=== PATIENT | male | born 1955 | race Caucasian/White ===

== ENCOUNTER → 2018-11-05 | Outpatient (CLI) | payer MEDICAID ==
[~2018-11-05] MED LIST: METF10002 PO; REGADENOSON 0.4 MG/5 ML SYRINGE ONE
== END | disposition home or self-care (01) ==
LOC: CFH 07:43
PROVIDERS: ATTEND Internal Medicine Cardiovascular Disease
DX: I71.2 Thoracic aortic aneurysm, without rupture (principal); I35.0 Nonrheumatic aortic (valve) stenosis
CPT/HCPCS: 78452; 93017; 93306; A9502; J2785

== ENCOUNTER 2018-11-13 15:51 | Outpatient (CLI) | payer MEDICAID ==
[~2018-11-13 15:51] MED LIST changes: -REGADENOSON 0.4 MG/5 ML SYRINGE ONE
== END 2018-11-13 23:59 | disposition home or self-care (01) ==
LOC: CFH 15:51 → CVU 23:59
PROVIDERS: ATTEND Internal Medicine Cardiovascular Disease
DX: I35.0 Nonrheumatic aortic (valve) stenosis (principal); I71.2 Thoracic aortic aneurysm, without rupture; I51.7 Cardiomegaly; Z72.0 Tobacco use
CPT/HCPCS: 93306

== ENCOUNTER 2018-11-27 08:17 | Outpatient (CLI) | payer MEDICAID ==
[2018-11-27] MEDS ORDERED: CETI10TA24 PO (09:12)
[2018-11-27] MEDS ORDERED: LISI1TAB5 PO (09:12)
[2018-11-27] MEDS ORDERED: METF500T17 PO (09:12)
[2018-11-27] MEDS ORDERED: ATOR40TA PO (09:12)
[2018-11-27] MEDS ORDERED: LEVO75CA2 PO (09:12)
[2018-11-27] MEDS ORDERED: TRAZ50TA66 PO (09:12)
[2018-11-27] MEDS ORDERED: LEVO75TA PO (09:12)
[2018-11-27 09:17] LABS: BASOPHILS # (AUTO) 0.06 x10^3/uL (0-0.1); BASOPHILS % (AUTO) 1 % (0-1); EOSINOPHILS # (AUTO) 0.29 x10^3/uL (0-0.4); EOSINOPHILS % (AUTO) 4 % (1-7); LYMPHOCYTES # (AUTO) 1.48 x10^3/uL (1-3.4); LYMPHOCYTES % (AUTO) 19 % (22-44); MD NO; MEAN CORPUSCULAR HEMOGLOBIN 31.4 pg (27.5-34.5); MEAN CORPUSCULAR HGB CONC 33.2 g/dL (33.2-36.2); MEAN CORPUSCULAR VOLUME 94.6 fL (81-97); MEAN PLATELET VOLUME 8.6 fL (7.4-10.4); MONOCYTES % (AUTO) 8 % (2-9); NEUTROPHILS # (AUTO) 5.49 x10^3/uL (1.8-6.8); NEUTROPHILS % (AUTO) 69 % (42-75); PLATELET COUNT 318 x10^3/uL (130-400); RED BLOOD COUNT 4.77 x10^6/uL (4.38-5.82); RED CELL DISTRIBUTION WIDTH 14.1 % (9.4-14.8)
[2018-11-27 09:21] LABS: ANION GAP 6 mmol/L (5-15); CALCIUM 9.4 mg/dL (8.5-10.1); CHLORIDE 102 mmol/L (98-107); CREATININE 0.94 mg/dL (0.7-1.3)
== END 2018-11-27 23:59 | disposition home or self-care (01) ==
LOC: STAR 08:17
PROVIDERS: ATTEND Internal Medicine Cardiovascular Disease
DX: Z01.818 Encounter for other preprocedural examination (principal); I71.2 Thoracic aortic aneurysm, without rupture; I35.0 Nonrheumatic aortic (valve) stenosis; I10 Essential (primary) hypertension; E78.2 Mixed hyperlipidemia; E11.9 Type 2 diabetes mellitus without complications; E66.9 Obesity, unspecified; E03.9 Hypothyroidism, unspecified
CPT/HCPCS: 36415; 80048; 85025

== ENCOUNTER 2018-12-02 09:33 | Day surgery (SDC) | payer MEDICAID ==
[2018-11-27 09:12] VITALS: BP 131/84
[~2018-12-02] VITALS: Ht 152.4 cm; Wt 80.9 kg
[~2018-12-02 09:33] MED LIST changes: +ATOR40TA PO; +CETI10TA24 PO; +LEVO75CA2 PO; +LEVO75TA PO; +LISI1TAB5 PO; +METF500T17 PO; +TRAZ50TA66 PO
[2018-12-02] MEDS ORDERED: SODIUM CHLORIDE 0.9% 1,000 ML IV SCH (09:38)
[2018-12-02] MEDS ORDERED: LIDOCAINE 1%, 20ML ONE (10:01)
[2018-12-02] MEDS ORDERED: FENTANYL PF 100 MCG/2ML ONE (10:01)
[2018-12-02] MEDS ORDERED: MIDAZOLAM 1 MG/ML, 5ML ONE (10:01)
[2018-12-02] MEDS ORDERED: MV-M1TAB35 PO (10:01)
== END 2018-12-02 14:44 | disposition home or self-care (01) ==
LOC: CACL 09:33
PROVIDERS: ATTEND Internal Medicine Cardiovascular Disease
DX: I71.2 Thoracic aortic aneurysm, without rupture (principal); I25.10 Atherosclerotic heart disease of native coronary artery without angina pectoris; E11.9 Type 2 diabetes mellitus without complications; I10 Essential (primary) hypertension; I35.0 Nonrheumatic aortic (valve) stenosis; E78.2 Mixed hyperlipidemia; E03.9 Hypothyroidism, unspecified; Z79.84 Long term (current) use of oral hypoglycemic drugs
CPT/HCPCS: 93454; 93567; C1894; J2250; J3010; J3490; Q9967

== ENCOUNTER 2018-12-15 11:30 | Inpatient (IN) | payer MEDICAID, MEDICARE ==
[~2018-12-15] VITALS: Ht 152.4 cm; Wt 86.0 kg
[~2018-12-15 11:30] MED LIST changes: +MV-M1TAB35 PO
[2018-12-31 14:09] LABS: BASOPHILS # (AUTO) 0.08 x10^3/uL (0-0.1); BASOPHILS % (AUTO) 1 % (0-1); EOSINOPHILS # (AUTO) 0.26 x10^3/uL (0-0.4); EOSINOPHILS % (AUTO) 3 % (1-7); LYMPHOCYTES # (AUTO) 1.34 x10^3/uL (1-3.4); LYMPHOCYTES % (AUTO) 17 % (22-44); MD NO; MEAN CORPUSCULAR HEMOGLOBIN 32.1 pg (27.5-34.5); MEAN CORPUSCULAR HGB CONC 34.3 g/dL (33.2-36.2); MEAN CORPUSCULAR VOLUME 93.6 fL (81-97); MEAN PLATELET VOLUME 8.3 fL (7.4-10.4); MONOCYTES # (AUTO) 0.68 x10^3/uL (0.2-0.8); MONOCYTES % (AUTO) 9 % (2-9); NEUTROPHILS # (AUTO) 5.53 x10^3/uL (1.8-6.8); NEUTROPHILS % (AUTO) 70 % (42-75); PLATELET COUNT 324 x10^3/uL (130-400); RED BLOOD COUNT 4.52 x10^6/uL (4.38-5.82); RED CELL DISTRIBUTION WIDTH 13.6 % (9.4-14.8)
[2018-12-31 14:14] LABS: INTERNATIONAL NORMALIZED RATIO 1.09 (0.93-1.1); PROTHROMBIN TIME 11.4 Seconds (9.6-11.5)
[2018-12-31 14:15] LABS: MICROSCOPIC NOT IND
[2018-12-31 14:16] LABS: ALANINE AMINOTRANSFERASE 41 U/L (12-78); ALBUMIN 3.9 g/dL (3.4-5.0); ANION GAP 7 mmol/L (5-15); CALCIUM 9.4 mg/dL (8.5-10.1); CHLORIDE 103 mmol/L (98-107)
[2018-12-31 14:18] LABS: ALKALINE PHOSPHATASE 104 U/L (45-117); BILIRUBIN,TOTAL 0.4 mg/dL (0.2-1.0); TOTAL PROTEIN 7.5 g/dL (6.4-8.2)
[2018-12-31] MEDS ORDERED: ASPI-496 PO (14:22)
[2018-12-31 16:06] LABS: HEMOGLOBIN A1C 7.3 % (4.2-6.3)
[2019-01-01] VITALS (20 sets, daily range): BP systolic 87–139; BP diastolic 38–73
[2019-01-01] MEDS ORDERED: ALBUMIN HUMAN 5% 500 ML IV PRN (05:00)
[2019-01-01] MEDS ORDERED: INSULIN LISPRO 100 UNITS/ML, PEN SQ-INSULIN SCH (05:30)
[2019-01-01] MEDS ORDERED: DO NOT GIVE MC SCH (05:30)
[2019-01-01] MEDS ORDERED: CHLORHEXIDINE 15 ML UDC MM SCH (05:30)
[2019-01-01] MEDS ORDERED: MIDAZOLAM 10MG/2 ML ONE (06:51)
[2019-01-01] MEDS ORDERED: FENTANYL PF 250 MCG/5ML ONE ×4 (06:51→06:52)
[2019-01-01] MEDS ORDERED: CALCIUM CHLORIDE 10%, 10ML SYR ONE (06:55)
[2019-01-01] MEDS ORDERED: AMINOCAPROIC ACID 250 MG/ML, 20ML ONE ×2 (06:55)
[2019-01-01] MEDS ORDERED: EPINEPHRINE 2 MG in SODIUM CHLORIDE 0.9% 248 ML IV SCH (07:30)
[2019-01-01] MEDS ORDERED: CEFUROXIME 1.5 GM in SODIUM CHLORIDE 0.9% 50 ML IVPB PRN (07:30)
[2019-01-01] MEDS ORDERED: PHENYLEPHRINE 10 MG in SODIUM CHLORIDE 0.9% 249 ML IV PRN ×2 (07:30→10:16)
[2019-01-01] MEDS ORDERED: POTASSIUM CHLORIDE 80 MEQ, SODIUM BICARBONATE 8.4% 10 MEQ, MAGNESIUM SULFATE 0.5 GM, LI... IV PRN (07:30)
[2019-01-01] MEDS ORDERED: DEXMEDETOMIDINE 200 MCG in SODIUM CHLORIDE 0.9% 48 ML IV SCH (07:30)
[2019-01-01] MEDS ORDERED: REGULAR INSULIN 62.5 UNITS in SODIUM CHLORIDE 0.9% 249.375 ML IV PRN (07:30)
[2019-01-01] MEDS ORDERED: MANNITOL PMX 20% 500 ML IVPB PRN (07:30)
[2019-01-01] MEDS ORDERED: VANCOMYCIN 1,300 MG in SODIUM CHLORIDE 0.9% 250 ML IV PRN (07:30)
[2019-01-01] MEDS ORDERED: ROCURONIUM 10 MG/ML,10ML ONE (07:40)
[2019-01-01] MEDS: SODIUM CHLORIDE FLUSH 10ML SYR IVF SCH ×3 (09:00→20:36)
[2019-01-01] MEDS ORDERED: MUPIROCIN OINT 2%, 22GM TP SCH (09:00)
[2019-01-01] MEDS ORDERED: MAGNESIUM SULFATE PMX 2GM/50ML 50 ML ONE (10:08)
[2019-01-01] MEDS ORDERED: MAGNESIUM SULFATE PMX 4GM/100M 0 ML ONE (10:09)
[2019-01-01] MEDS ORDERED: NITROGLYCERIN/D5W PMX 250 ML IV PRN (10:16)
[2019-01-01] MEDS ORDERED: DOBUTAMINE 250 MG in SODIUM CHLORIDE 0.9% 230 ML IV PRN (10:16)
[2019-01-01] MEDS ORDERED: VASOPRESSIN 50 UNIT in SODIUM CHLORIDE 0.9% 247.5 ML IV PRN (10:16)
[2019-01-01] MEDS ORDERED: PROCHLORPERAZINE 5 MG/ML, 2ML IVPush PRN (10:30)
[2019-01-01] MEDS ORDERED: FENTANYL PF 100 MCG/2ML IVPush PRN (10:30)
[2019-01-01] MEDS ORDERED: ACETAMINOPHEN 650 MG SUPP PR PRN (10:30)
[2019-01-01] MEDS ORDERED: BISACODYL 10 MG SUPP PR PRN (10:30)
[2019-01-01] MEDS ORDERED: GLUCAGON 1 MG IM PRN (10:30)
[2019-01-01] MEDS ORDERED: HYDROcodone/APAP 10/325 MG TABLET PO PRN (10:30)
[2019-01-01] MEDS ORDERED: DEXTROSE 50%, 50ML SYRINGE IVPush PRN (10:30)
[2019-01-01] MEDS ORDERED: BISACODYL 5 MG EC TABLET PO PRN (10:30)
[2019-01-01] MEDS ORDERED: SODIUM CHLORIDE 0.9% 1,000 ML IV PRN (10:30)
[2019-01-01] MEDS ORDERED: INSULIN REGULAR 100 UNITS/ML, 3ML VIAL IVPush PRN (10:30)
[2019-01-01] MEDS ORDERED: DEXTROSE 4 GM TAB.CHEW PO PRN (10:30)
[2019-01-01] MEDS ORDERED: MIDAZOLAM 1 MG/ML, 5ML IVPush PRN (10:30)
[2019-01-01] MEDS: DOCUSATE 100 MG CAPSULE PO SCH ×2 (10:44→20:37)
[2019-01-01] MEDS: INSULIN LISPRO 100 UNITS/ML, PEN SQ-INSULIN SCH ×3 (11:00→20:37)
[2019-01-01] MEDS ORDERED: LIDOCAINE 2% 100MG/5ML SYRINGE ONE (11:02)
[2019-01-01] MEDS ORDERED: SODIUM BICARBONATE 1 MEQ/ML, 50ML VIAL ONE ×2 (11:02→17:56)
[2019-01-01] MEDS ORDERED: HEPARIN 1,000 UNITS/ML, 30ML ONE (11:03)
[2019-01-01] MEDS ORDERED: ALBUMIN HUMAN 25% 50 ML ONE (11:03)
[2019-01-01] MEDS ORDERED: PROPOFOL 10 MG/ML, 20ML ONE (11:53)
[2019-01-01 11:54] LABS: GLUCOSE BY BLOOD GAS ANALYZER 169 mg/dL (70-110); HEMOGLOBIN BY BLOOD GAS ANALYZ 12.5 g/dL (14.0-18.0); POTASSIUM BY BLOOD GAS ANALYZR 3.3 mmol/L (3.6-5.5)
[2019-01-01] MEDS ORDERED: PHENYLEPHRINE 10 MG/ML ONE (12:03)
[2019-01-01 12:07] LABS: INTERNATIONAL NORMALIZED RATIO 1.3 (0.93-1.1); PROTHROMBIN TIME 13.5 Seconds (9.6-11.5)
[2019-01-01] MEDS: MAGNESIUM SULFATE 1 GM in SODIUM CHLORIDE 0.9% 50 ML IVPB SCH (12:17)
[2019-01-01] MEDS: KSCALE TO 4.5 IV SCH ×3 (12:52→22:00)
[2019-01-01] MEDS: DEXMEDETOMIDINE 200 MCG in SODIUM CHLORIDE 0.9% 48 ML IV PRN ×3 (12:53→21:17)
[2019-01-01] MEDS ORDERED: POTASSIUM CHLORIDE PMX 100 ML IV ONE ×2 (13:00→17:30)
[2019-01-01] MEDS: LACTATED RINGERS 1,000 ML IV PRN ×4 (13:06→15:11)
[2019-01-01] MEDS ORDERED: POTASSIUM CHLORIDE 30 MEQ in SODIUM CHLORIDE 0.9% 100 ML IV ONE (13:30)
[2019-01-01] MEDS: SODIUM BICARB 8.4%, 50ML SYRINGE IV PRN ×4 (14:37→18:00)
[2019-01-01] MEDS: morphine SULFATE 10 MG/ML, 1ML IVPush PRN ×2 (16:49→20:57)
[2019-01-01 17:19] LABS: INTERNATIONAL NORMALIZED RATIO 1.26 (0.93-1.1); PROTHROMBIN TIME 13.1 Seconds (9.6-11.5)
[2019-01-01] MEDS ORDERED: NOVOSEVEN RT (FACTOR VIIA) RECOMB 1,000 MCG IVPush STA (17:46)
[2019-01-01] MEDS ORDERED: CALCIUM CHLORIDE 13.6 MEQ in SODIUM CHLORIDE 0.9% 100 ML IV ONE (18:00)
[2019-01-01] MEDS ORDERED: PROTAMINE SULFATE 10 MG/ML, 5ML IVPush ONE (18:30)
[2019-01-01] MEDS ORDERED: SODIUM BICARB 8.4%, 50ML SYRINGE IVPush ONE (18:30)
[2019-01-01] MEDS: EPINEPHRINE 2 MG in SODIUM CHLORIDE 0.9% 248 ML IV PRN (19:11)
[2019-01-01] MEDS: REGULAR INSULIN 62.5 UNITS in SODIUM CHLORIDE 0.9% 249.375 ML IV PRN (19:50)
[2019-01-01] MEDS: CEFUROXIME 1.5 GM in SODIUM CHLORIDE 0.9% 50 ML IVPB SCH (20:00)
[2019-01-01] MEDS: VANCOMYCIN 1,200 MG in SODIUM CHLORIDE 0.9% 250 ML IVPB SCH (20:36)
[2019-01-02] MEDS: DEXMEDETOMIDINE 200 MCG in SODIUM CHLORIDE 0.9% 48 ML IV PRN ×2 (00:44→04:50)
[2019-01-02] MEDS: morphine SULFATE 10 MG/ML, 1ML IVPush PRN ×2 (01:11→04:50)
[2019-01-02] MEDS ORDERED: PHENYLEPHRINE 20 MG in SODIUM CHLORIDE 0.9% 248 ML IV PRN (01:30)
[2019-01-02] MEDS: REGULAR INSULIN 62.5 UNITS in SODIUM CHLORIDE 0.9% 249.375 ML IV PRN (01:52)
[2019-01-02] MEDS: KSCALE TO 4.5 IV SCH (04:00)
[2019-01-02 05:16] LABS: MEAN CORPUSCULAR HEMOGLOBIN 31.6 pg (27.5-34.5); MEAN CORPUSCULAR HGB CONC 34.2 g/dL (33.2-36.2); MEAN CORPUSCULAR VOLUME 92.5 fL (81-97); MEAN PLATELET VOLUME 9.1 fL (7.4-10.4); PLATELET COUNT 143 x10^3/uL (130-400); RED BLOOD COUNT 3.07 x10^6/uL (4.38-5.82); RED CELL DISTRIBUTION WIDTH 15.3 % (9.4-14.8)
[2019-01-02 05:23] LABS: INTERNATIONAL NORMALIZED RATIO 1.09 (0.93-1.1); PROTHROMBIN TIME 11.4 Seconds (9.6-11.5)
[2019-01-02 05:27] LABS: ALBUMIN 2.8 g/dL (3.4-5.0); ANION GAP 6 mmol/L (5-15); CHLORIDE 117 mmol/L (98-107)
[2019-01-02 05:43] LABS: MD YES
[2019-01-02 05:46] LABS: <PLATELET ESTIMATE> ADEQUATE; <PLT MORPHOLOGY> NORMAL PLT MORPH; BAND#(MANUAL) 0.59 x10^3/uL; BANDS%(MANUAL) 5 % (0-7); LYMPH#(MANUAL) 1.05 x10^3/uL (1-3.4); LYMPHS% (MANUAL) 9 % (22-44); MONOS#(MANUAL) 0.94 x10^3/uL (0.3-2.7); MONOS% (MANUAL) 8 % (2-9); POLYCHROMASIA 1+; SEG#(MANUAL) 9.13 x10^3/uL (1.8-6.8); SEGS% (MANUAL) 78 % (42-75)
[2019-01-02] MEDS: CEFUROXIME 1.5 GM in SODIUM CHLORIDE 0.9% 50 ML IVPB SCH (06:46)
[2019-01-02] MEDS: INSULIN LISPRO 100 UNITS/ML, PEN SQ-INSULIN SCH ×4 (07:10→21:12)
[2019-01-02] MEDS: EPINEPHRINE 2 MG in SODIUM CHLORIDE 0.9% 248 ML IV PRN (07:52)
[2019-01-02] MEDS: DOCUSATE 100 MG CAPSULE PO SCH ×2 (07:53→21:12)
[2019-01-02] MEDS: VANCOMYCIN 1,200 MG in SODIUM CHLORIDE 0.9% 250 ML IVPB SCH (07:53)
[2019-01-02] MEDS: ONDANSETRON 2MG/ML, 2ML IVPush PRN (08:40)
[2019-01-02 08:44] LABS: FIO2 50 %
[2019-01-02] MEDS: SODIUM CHLORIDE FLUSH 10ML SYR IVF SCH ×4 (09:00→21:12)
[2019-01-02] MEDS: ASPIRIN 81 MG TABLET EC PO SCH (10:46)
[2019-01-02] MEDS: MAGNESIUM SULFATE 1 GM in SODIUM CHLORIDE 0.9% 50 ML IVPB SCH (10:46)
[2019-01-02] MEDS: MUPIROCIN OINT 2%, 22GM NAS SCH ×2 (10:46→21:12)
[2019-01-02] MEDS: FUROSEMIDE 40 MG/4 ML IV SCH ×2 (10:46→16:51)
[2019-01-02] MEDS: OXYcodone IR 5MG TABLET PO PRN (16:51)
[2019-01-02] MEDS ORDERED: FUROSEMIDE 40 MG/4 ML IV SCH (17:00)
[2019-01-03] MEDS: OXYcodone IR 5MG TABLET PO PRN ×2 (00:48→08:40)
[2019-01-03 05:01] LABS: ANION GAP 2 mmol/L (5-15); CALCIUM 7.4 mg/dL (8.5-10.1); CHLORIDE 109 mmol/L (98-107)
[2019-01-03 05:06] LABS: BASOPHILS # (AUTO) 0.03 x10^3/uL (0-0.1); BASOPHILS % (AUTO) 0 % (0-1); EOSINOPHILS # (AUTO) 0.02 x10^3/uL (0-0.4); EOSINOPHILS % (AUTO) 0 % (1-7); LYMPHOCYTES # (AUTO) 1.01 x10^3/uL (1-3.4); LYMPHOCYTES % (AUTO) 9 % (22-44); MD NO; MEAN CORPUSCULAR HEMOGLOBIN 31.7 pg (27.5-34.5); MEAN CORPUSCULAR HGB CONC 34.5 g/dL (33.2-36.2); MEAN PLATELET VOLUME 9.9 fL (7.4-10.4); MONOCYTES # (AUTO) 1.11 x10^3/uL (0.2-0.8); MONOCYTES % (AUTO) 10 % (2-9); NEUTROPHILS # (AUTO) 9.37 x10^3/uL (1.8-6.8); NEUTROPHILS % (AUTO) 81 % (42-75); PLATELET COUNT 100 x10^3/uL (130-400); RED BLOOD COUNT 2.55 x10^6/uL (4.38-5.82); RED CELL DISTRIBUTION WIDTH 15.6 % (9.4-14.8)
[2019-01-03 05:09] LABS: INTERNATIONAL NORMALIZED RATIO 0.97 (0.93-1.1); PROTHROMBIN TIME 10.2 Seconds (9.6-11.5)
[2019-01-03] MEDS ORDERED: TRAZODONE 50MG TABLET PO PRN (06:00)
[2019-01-03] MEDS: INSULIN LISPRO 100 UNITS/ML, PEN SQ-INSULIN SCH ×4 (06:24→22:00)
[2019-01-03] MEDS ORDERED: MAGNESIUM HYDROXIDE 8%, 30ML UDC PO PRN (07:00)
[2019-01-03] MEDS: ONDANSETRON 2MG/ML, 2ML IVPush PRN (08:03)
[2019-01-03] MEDS: LEVOTHYROXINE 75 MCG TABLET PO SCH (08:39)
[2019-01-03] MEDS: ASPIRIN 81 MG TABLET EC PO SCH (08:39)
[2019-01-03] MEDS: CETIRIZINE 10 MG TABLET PO SCH (08:39)
[2019-01-03] MEDS: CLOPIDOGREL 75 MG TABLET PO SCH (08:40)
[2019-01-03] MEDS: MUPIROCIN OINT 2%, 22GM NAS SCH ×2 (08:40→21:52)
[2019-01-03] MEDS: FUROSEMIDE 40 MG/4 ML IV SCH ×2 (08:40→16:27)
[2019-01-03] MEDS: DOCUSATE 100 MG CAPSULE PO SCH ×2 (08:40→21:52)
[2019-01-03] MEDS: SODIUM CHLORIDE FLUSH 10ML SYR IVF SCH ×5 (08:40→21:51)
[2019-01-03] MEDS: metFORMIN 500 MG TABLET PO SCH ×2 (08:40→21:53)
[2019-01-03 11:15] VITALS: BP 127/72
[2019-01-03] MEDS: HYDROcodone/APAP 5/325 TABLET PO PRN ×2 (12:33→21:53)
[2019-01-03] MEDS: MAGNESIUM SULFATE 1 GM in SODIUM CHLORIDE 0.9% 50 ML IVPB SCH (12:34)
[2019-01-03 18:49] VITALS: BP 119/63
[2019-01-03] MEDS: ATORVASTATIN 40 MG TABLET PO SCH (21:53)
[2019-01-04 01:30] VITALS: BP 115/70
[2019-01-04 05:53] LABS: ANION GAP 5 mmol/L (5-15); CALCIUM 7.3 mg/dL (8.5-10.1); CHLORIDE 99 mmol/L (98-107); CREATININE 1.08 mg/dL (0.7-1.3)
[2019-01-04 06:46] LABS: MEAN CORPUSCULAR HEMOGLOBIN 30.8 pg (27.5-34.5); MEAN CORPUSCULAR VOLUME 93.3 fL (81-97); MEAN PLATELET VOLUME 10.5 fL (7.4-10.4); PLATELET COUNT 165 x10^3/uL (130-400); RED BLOOD COUNT 2.91 x10^6/uL (4.38-5.82); RED CELL DISTRIBUTION WIDTH 14.9 % (9.4-14.8)
[2019-01-04] MEDS: INSULIN LISPRO 100 UNITS/ML, PEN SQ-INSULIN SCH ×4 (07:00→21:18)
[2019-01-04 07:12] LABS: MD YES
[2019-01-04 07:14] LABS: LYMPH#(MANUAL) 2.39 x10^3/uL (1-3.4); LYMPHS% (MANUAL) 13 % (22-44); METAMYELOCYTES# (MANUAL) 0.37 x10^3/uL (0-0); METAMYELOCYTES% (MANUAL) 2 % (0-1); MONOS#(MANUAL) 0.74 x10^3/uL (0.3-2.7); MONOS% (MANUAL) 4 % (2-9); POLYCHROMASIA 1+; REACTIVE LYMPHS # (MANUAL) 0.18 x10^3/uL (0-0); REACTIVE LYMPHS % (MANUAL) 1 % (0-0); SEG#(MANUAL) 14.72 x10^3/uL (1.8-6.8); SEGS% (MANUAL) 80 % (42-75)
[2019-01-04 07:15] LABS: <PLATELET ESTIMATE> ADEQUATE; ANISOCYTOSIS 1+; LARGE PLATELETS 1+
[2019-01-04] MEDS: KETOROLAC 30 MG/1 ML IM SCH ×2 (08:30→21:16)
[2019-01-04] MEDS: ASPIRIN 81 MG TABLET EC PO SCH (08:53)
[2019-01-04] MEDS: LEVOTHYROXINE 75 MCG TABLET PO SCH (08:53)
[2019-01-04] MEDS: DOCUSATE 100 MG CAPSULE PO SCH ×2 (08:53→21:14)
[2019-01-04] MEDS: CETIRIZINE 10 MG TABLET PO SCH (08:53)
[2019-01-04] MEDS: CLOPIDOGREL 75 MG TABLET PO SCH (08:53)
[2019-01-04] MEDS: metFORMIN 500 MG TABLET PO SCH ×2 (08:53→21:14)
[2019-01-04] MEDS ORDERED: CLOPIDOGREL 75 MG TABLET PO SCH (09:00)
[2019-01-04] MEDS: SODIUM CHLORIDE FLUSH 10ML SYR IVF SCH ×6 (10:14→21:16)
[2019-01-04] MEDS: FUROSEMIDE 40 MG/4 ML IV SCH ×2 (10:14→18:13)
[2019-01-04] MEDS: MUPIROCIN OINT 2%, 22GM NAS SCH ×2 (10:14→21:15)
[2019-01-04 11:02] LABS: MICROSCOPIC INDICATED
[2019-01-04 11:12] LABS: CULTURE INDICATED? NO
[2019-01-04 13:24] VITALS: BP 108/70
[2019-01-04] MEDS ORDERED: CEFAZOLIN PMX 1GM/50ML 50 ML IVPB ONE (13:30)
[2019-01-04] MEDS: HYDROcodone/APAP 5/325 TABLET PO PRN (16:38)
[2019-01-04] MEDS: ACETAMINOPHEN 325 MG TABLET PO PRN (18:37)
[2019-01-04 18:40] VITALS: BP 110/71
[2019-01-04] MEDS: OXYcodone IR 5MG TABLET PO PRN (20:13)
[2019-01-04] MEDS: SODIUM CHLORIDE 0.9% 1,000 ML IV SCH (21:06)
[2019-01-04] MEDS: ATORVASTATIN 40 MG TABLET PO SCH (21:14)
[2019-01-05 03:40] VITALS: BP 106/67
[2019-01-05 05:07] LABS: MEAN CORPUSCULAR HEMOGLOBIN 31.3 pg (27.5-34.5); MEAN CORPUSCULAR HGB CONC 33.6 g/dL (33.2-36.2); MEAN CORPUSCULAR VOLUME 93.2 fL (81-97); MEAN PLATELET VOLUME 10.6 fL (7.4-10.4); PLATELET COUNT 173 x10^3/uL (130-400); RED BLOOD COUNT 2.65 x10^6/uL (4.38-5.82); RED CELL DISTRIBUTION WIDTH 14.6 % (9.4-14.8)
[2019-01-05 05:14] LABS: ANION GAP 5 mmol/L (5-15); CALCIUM 7.5 mg/dL (8.5-10.1); CHLORIDE 94 mmol/L (98-107); CREATININE 1.26 mg/dL (0.7-1.3)
[2019-01-05 05:59] LABS: BASOPHILS # (AUTO) 0.02 x10^3/uL (0-0.1); BASOPHILS % (AUTO) 0 % (0-1); EOSINOPHILS # (AUTO) 0.07 x10^3/uL (0-0.4); EOSINOPHILS % (AUTO) 0 % (1-7); LYMPHOCYTES # (AUTO) 1.25 x10^3/uL (1-3.4); LYMPHOCYTES % (AUTO) 8 % (22-44); MD SCAN; MONOCYTES # (AUTO) 1.46 x10^3/uL (0.2-0.8); MONOCYTES % (AUTO) 9 % (2-9); NEUTROPHILS # (AUTO) 13.33 x10^3/uL (1.8-6.8); NEUTROPHILS % (AUTO) 83 % (42-75)
[2019-01-05] MEDS: INSULIN LISPRO 100 UNITS/ML, PEN SQ-INSULIN SCH ×4 (07:00→20:50)
[2019-01-05] MEDS: metFORMIN 500 MG TABLET PO SCH ×2 (08:01→20:51)
[2019-01-05 08:03] VITALS: BP 108/69
[2019-01-05] MEDS: DOCUSATE 100 MG CAPSULE PO SCH (08:54)
[2019-01-05] MEDS: CETIRIZINE 10 MG TABLET PO SCH (08:55)
[2019-01-05] MEDS: ASPIRIN 81 MG TABLET EC PO SCH (08:55)
[2019-01-05] MEDS: CLOPIDOGREL 75 MG TABLET PO SCH (08:55)
[2019-01-05] MEDS: SODIUM CHLORIDE FLUSH 10ML SYR IVF SCH ×7 (08:55→20:55)
[2019-01-05] MEDS: MUPIROCIN OINT 2%, 22GM NAS SCH ×2 (08:55→20:51)
[2019-01-05] MEDS: LEVOTHYROXINE 75 MCG TABLET PO SCH (08:56)
[2019-01-05] MEDS: OXYcodone IR 5MG TABLET PO PRN ×3 (10:14→20:51)
[2019-01-05] MEDS: SODIUM CHLORIDE 0.9% 1,000 ML IV SCH (10:32)
[2019-01-05] MEDS ORDERED: LIDOCAINE 2%, 20ML ONE (11:55)
[2019-01-05] MEDS ORDERED: VANCOMYCIN 500 MG ONE (11:55)
[2019-01-05] MEDS ORDERED: MIDAZOLAM 1 MG/ML, 5ML ONE (11:55)
[2019-01-05] MEDS ORDERED: FENTANYL PF 100 MCG/2ML ONE (11:55)
[2019-01-05] MEDS ORDERED: VANCOMYCIN PMX 1GM/200ML 200 ML ONE (11:56)
[2019-01-05] MEDS ORDERED: HOLD MEDICATION MC PRN (14:00)
[2019-01-05 20:04] VITALS: BP 165/81
[2019-01-05] MEDS: ATORVASTATIN 40 MG TABLET PO SCH (20:51)
[2019-01-05] MEDS: CEFAZOLIN PMX 1GM/50ML 50 ML IVPB SCH (22:08)
[2019-01-06 01:53] VITALS: BP 126/76
[2019-01-06] MEDS: OXYcodone IR 5MG TABLET PO PRN (03:49)
[2019-01-06 05:27] LABS: BASOPHILS # (AUTO) 0.06 x10^3/uL (0-0.1); BASOPHILS % (AUTO) 0 % (0-1); EOSINOPHILS # (AUTO) 0.41 x10^3/uL (0-0.4); EOSINOPHILS % (AUTO) 3 % (1-7); LYMPHOCYTES # (AUTO) 1.18 x10^3/uL (1-3.4); LYMPHOCYTES % (AUTO) 8 % (22-44); MD NO; MEAN CORPUSCULAR HEMOGLOBIN 31.4 pg (27.5-34.5); MEAN CORPUSCULAR HGB CONC 33.7 g/dL (33.2-36.2); MEAN CORPUSCULAR VOLUME 93.2 fL (81-97); MEAN PLATELET VOLUME 9.4 fL (7.4-10.4); MONOCYTES # (AUTO) 1.38 x10^3/uL (0.2-0.8); MONOCYTES % (AUTO) 9 % (2-9); NEUTROPHILS % (AUTO) 79 % (42-75); PLATELET COUNT 254 x10^3/uL (130-400); RED CELL DISTRIBUTION WIDTH 14.8 % (9.4-14.8)
[2019-01-06 05:33] LABS: ANION GAP 5 mmol/L (5-15); CALCIUM 7.7 mg/dL (8.5-10.1); CHLORIDE 97 mmol/L (98-107)
[2019-01-06 05:34] LABS: CREATININE 0.82 mg/dL (0.7-1.3)
[2019-01-06] MEDS: CEFAZOLIN PMX 1GM/50ML 50 ML IVPB SCH (06:24)
[2019-01-06] MEDS: INSULIN LISPRO 100 UNITS/ML, PEN SQ-INSULIN SCH ×4 (07:00→21:00)
[2019-01-06 08:03] VITALS: BP 146/87
[2019-01-06] MEDS: CLOPIDOGREL 75 MG TABLET PO SCH (08:59)
[2019-01-06] MEDS: metFORMIN 500 MG TABLET PO SCH ×2 (08:59→21:23)
[2019-01-06] MEDS: DOCUSATE 100 MG CAPSULE PO SCH (09:00)
[2019-01-06] MEDS: ASPIRIN 81 MG TABLET EC PO SCH (09:00)
[2019-01-06] MEDS: LEVOTHYROXINE 75 MCG TABLET PO SCH (09:00)
[2019-01-06] MEDS: CETIRIZINE 10 MG TABLET PO SCH (09:00)
[2019-01-06] MEDS: MUPIROCIN OINT 2%, 22GM NAS SCH ×2 (09:01→21:23)
[2019-01-06] MEDS: SODIUM CHLORIDE FLUSH 10ML SYR IVF SCH ×8 (09:01→21:24)
[2019-01-06] MEDS: LISINOPRIL 5 MG TABLET PO SCH (12:19)
[2019-01-06] MEDS ORDERED: FUROSEMIDE 40 MG/4 ML IV ONE (12:30)
[2019-01-06 13:10] VITALS: BP 136/81
[2019-01-06] MEDS ORDERED: FUROSEMIDE 20 MG/2 ML IV SCH (17:00)
[2019-01-06 19:42] VITALS: BP 133/79
[2019-01-06] MEDS: ATORVASTATIN 40 MG TABLET PO SCH (21:23)
[2019-01-06 21:29] VITALS: BP 115/71
[2019-01-07 02:00] VITALS: BP 116/77
[2019-01-07 06:08] LABS: ANION GAP 5 mmol/L (5-15); CALCIUM 7.8 mg/dL (8.5-10.1); CHLORIDE 99 mmol/L (98-107); CREATININE 0.69 mg/dL (0.7-1.3)
[2019-01-07] MEDS: INSULIN LISPRO 100 UNITS/ML, PEN SQ-INSULIN SCH ×4 (07:00→21:00)
[2019-01-07 07:41] VITALS: BP 134/84
[2019-01-07] MEDS ORDERED: FUROSEMIDE 20 MG TABLET ONE (08:38)
[2019-01-07] MEDS: SODIUM CHLORIDE FLUSH 10ML SYR IVF SCH ×8 (08:50→21:10)
[2019-01-07] MEDS: CLOPIDOGREL 75 MG TABLET PO SCH (08:51)
[2019-01-07] MEDS: DOCUSATE 100 MG CAPSULE PO SCH (08:51)
[2019-01-07] MEDS: metFORMIN 500 MG TABLET PO SCH ×2 (08:51→21:09)
[2019-01-07] MEDS: LISINOPRIL 5 MG TABLET PO SCH (08:51)
[2019-01-07] MEDS: ASPIRIN 81 MG TABLET EC PO SCH (08:51)
[2019-01-07] MEDS: CETIRIZINE 10 MG TABLET PO SCH (08:51)
[2019-01-07] MEDS: FUROSEMIDE 20 MG TABLET PO SCH ×2 (08:51→16:00)
[2019-01-07] MEDS: HYDROcodone/APAP 5/325 TABLET PO PRN ×2 (08:52→21:37)
[2019-01-07] MEDS: MUPIROCIN OINT 2%, 22GM NAS SCH (08:52)
[2019-01-07] MEDS: LEVOTHYROXINE 75 MCG TABLET PO SCH (08:57)
[2019-01-07 14:45] VITALS: BP 119/71
[2019-01-07] MEDS: ACETAMINOPHEN 325 MG TABLET PO PRN (16:01)
[2019-01-07] MEDS ORDERED: FUROSEMIDE 20 MG TABLET PO SCH (17:00)
[2019-01-07 19:41] VITALS: BP 112/72
[2019-01-07] MEDS: ATORVASTATIN 40 MG TABLET PO SCH (21:09)
[2019-01-08 01:28] VITALS: BP 142/74
[2019-01-08] MEDS: HYDROcodone/APAP 5/325 TABLET PO PRN ×3 (01:47→20:58)
[2019-01-08 06:29] LABS: CHLORIDE 105 mmol/L (98-107)
[2019-01-08 06:37] LABS: ANION GAP 4 mmol/L (5-15); CALCIUM 8.4 mg/dL (8.5-10.1); CREATININE 0.62 mg/dL (0.7-1.3)
[2019-01-08] MEDS: INSULIN LISPRO 100 UNITS/ML, PEN SQ-INSULIN SCH ×4 (07:00→20:40)
[2019-01-08 08:00] VITALS: BP 124/76
[2019-01-08] MEDS: FUROSEMIDE 20 MG TABLET PO SCH ×2 (08:00→17:54)
[2019-01-08] MEDS ORDERED: FUROSEMIDE 40 MG/4 ML IV ONE (08:30)
[2019-01-08] MEDS: CLOPIDOGREL 75 MG TABLET PO SCH (08:57)
[2019-01-08] MEDS: DOCUSATE 100 MG CAPSULE PO SCH (08:57)
[2019-01-08] MEDS: ASPIRIN 81 MG TABLET EC PO SCH (08:57)
[2019-01-08] MEDS: LISINOPRIL 5 MG TABLET PO SCH (08:57)
[2019-01-08] MEDS: POTASSIUM CHLORIDE 20 MEQ TAB.ER.PRT PO SCH (08:57)
[2019-01-08] MEDS: LEVOTHYROXINE 75 MCG TABLET PO SCH (08:58)
[2019-01-08] MEDS: metFORMIN 500 MG TABLET PO SCH ×2 (08:58→20:55)
[2019-01-08] MEDS: CETIRIZINE 10 MG TABLET PO SCH (08:58)
[2019-01-08] MEDS: SODIUM CHLORIDE FLUSH 10ML SYR IVF SCH ×8 (09:00→20:56)
[2019-01-08] MEDS: ACETAMINOPHEN 325 MG TABLET PO PRN ×2 (14:42→22:40)
[2019-01-08 15:00] VITALS: BP 121/75
[2019-01-08 19:31] VITALS: BP 148/77
[2019-01-08] MEDS: ATORVASTATIN 40 MG TABLET PO SCH (20:55)
[2019-01-09 01:23] VITALS: BP 120/70
[2019-01-09 05:58] LABS: CHLORIDE 104 mmol/L (98-107)
[2019-01-09 06:24] LABS: ANION GAP 6 mmol/L (5-15); CALCIUM 8.7 mg/dL (8.5-10.1); CREATININE 0.74 mg/dL (0.7-1.3)
[2019-01-09] MEDS: INSULIN LISPRO 100 UNITS/ML, PEN SQ-INSULIN SCH ×4 (07:00→20:54)
[2019-01-09 07:30] VITALS: BP 131/79
[2019-01-09] MEDS ORDERED: CLOP75TA PO (08:05)
[2019-01-09] MEDS ORDERED: HYDR-3237 PO (08:05)
[2019-01-09] MEDS ORDERED: FURO-92 PO (08:05)
[2019-01-09] MEDS ORDERED: POTA20TA6 PO (08:05)
[2019-01-09] MEDS: SODIUM CHLORIDE FLUSH 10ML SYR IVF SCH ×8 (09:00→20:48)
[2019-01-09] MEDS: metFORMIN 500 MG TABLET PO SCH ×2 (09:55→20:48)
[2019-01-09] MEDS: ASPIRIN 81 MG TABLET EC PO SCH (09:55)
[2019-01-09] MEDS: CLOPIDOGREL 75 MG TABLET PO SCH (09:55)
[2019-01-09] MEDS: CETIRIZINE 10 MG TABLET PO SCH (09:55)
[2019-01-09] MEDS: FUROSEMIDE 20 MG TABLET PO SCH ×2 (09:55→17:38)
[2019-01-09] MEDS: DOCUSATE 100 MG CAPSULE PO SCH (09:56)
[2019-01-09] MEDS: LEVOTHYROXINE 75 MCG TABLET PO SCH (09:56)
[2019-01-09] MEDS: POTASSIUM CHLORIDE 20 MEQ TAB.ER.PRT PO SCH (09:56)
[2019-01-09] MEDS: LISINOPRIL 5 MG TABLET PO SCH (09:56)
[2019-01-09] MEDS ORDERED: LIDOCAINE-MPF 1%, 5ML ONE (10:12)
[2019-01-09 12:58] VITALS: BP 124/73
[2019-01-09 19:41] VITALS: BP 139/76
[2019-01-09] MEDS: ATORVASTATIN 40 MG TABLET PO SCH (20:48)
[2019-01-09] MEDS: ACETAMINOPHEN 325 MG TABLET PO PRN (20:48)
[2019-01-10 01:48] VITALS: BP 120/70
[2019-01-10] MEDS: HYDROcodone/APAP 5/325 TABLET PO PRN (04:44)
[2019-01-10 05:53] LABS: CHLORIDE 104 mmol/L (98-107)
[2019-01-10 06:17] LABS: ANION GAP 7 mmol/L (5-15); CALCIUM 8.9 mg/dL (8.5-10.1); CREATININE 0.74 mg/dL (0.7-1.3)
[2019-01-10 06:31] VITALS: BP 127/78
[2019-01-10] MEDS: INSULIN LISPRO 100 UNITS/ML, PEN SQ-INSULIN SCH (07:00)
[2019-01-10] MEDS: CETIRIZINE 10 MG TABLET PO SCH (08:19)
[2019-01-10] MEDS: ASPIRIN 81 MG TABLET EC PO SCH (08:19)
[2019-01-10] MEDS: CLOPIDOGREL 75 MG TABLET PO SCH (08:19)
[2019-01-10] MEDS: DOCUSATE 100 MG CAPSULE PO SCH (08:19)
[2019-01-10] MEDS: POTASSIUM CHLORIDE 20 MEQ TAB.ER.PRT PO SCH (08:19)
[2019-01-10] MEDS: metFORMIN 500 MG TABLET PO SCH (08:19)
[2019-01-10] MEDS: FUROSEMIDE 20 MG TABLET PO SCH (08:20)
[2019-01-10] MEDS: SODIUM CHLORIDE FLUSH 10ML SYR IVF SCH ×4 (08:20→08:21)
[2019-01-10] MEDS: LISINOPRIL 5 MG TABLET PO SCH (08:20)
[2019-01-10] MEDS: LEVOTHYROXINE 75 MCG TABLET PO SCH (08:20)
== END 2019-01-10 12:41 | disposition home or self-care (01) | DRG 220 ==
LOC: 5SO 01-01 04:29 → CCU 01-01 10:03 → 5SO 01-03 11:05 → DCLOUNGE 01-10 12:02
PROVIDERS: ADMIT Thoracic Surgery (Cardiothoracic Vascular Surgery); ATTEND Thoracic Surgery (Cardiothoracic Vascular Surgery)
PROC: 02RF08Z Replacement of Aortic Valve with Zooplastic Tissue, Open Approach (ICD-10-PCS; 2019-01-01)
PROC: B246ZZ4 Ultrasonography of Right and Left Heart, Transesophageal (ICD-10-PCS; 2019-01-01)
PROC: 30233K1 Transfusion of Nonautologous Frozen Plasma into Peripheral Vein, Percutaneous Approach (ICD-10-PCS; 2019-01-01)
PROC: 30233N1 Transfusion of Nonautologous Red Blood Cells into Peripheral Vein, Percutaneous Approach (ICD-10-PCS; 2019-01-01)
PROC: 30233R1 Transfusion of Nonautologous Platelets into Peripheral Vein, Percutaneous Approach (ICD-10-PCS; 2019-01-01)
PROC: 30233M1 Transfusion of Nonautologous Plasma Cryoprecipitate into Peripheral Vein, Percutaneous Approach (ICD-10-PCS; 2019-01-01)
PROC: 05HY33Z Insertion of Infusion Device into Upper Vein, Percutaneous Approach (ICD-10-PCS; 2019-01-01)
PROC: B543ZZA Ultrasonography of Right Jugular Veins, Guidance (ICD-10-PCS; 2019-01-01)
PROC: 03HY32Z Insertion of Monitoring Device into Upper Artery, Percutaneous Approach (ICD-10-PCS; 2019-01-01)
PROC: 02H63JZ Insertion of Pacemaker Lead into Right Atrium, Percutaneous Approach (ICD-10-PCS; principal; 2019-01-05)
PROC: 02HK3JZ Insertion of Pacemaker Lead into Right Ventricle, Percutaneous Approach (ICD-10-PCS; 2019-01-05)
PROC: 0JH606Z Insertion of Pacemaker, Dual Chamber into Chest Subcutaneous Tissue and Fascia, Open Approach (ICD-10-PCS; 2019-01-05)
PROC: 0W9B3ZZ Drainage of Left Pleural Cavity, Percutaneous Approach (ICD-10-PCS; 2019-01-09)
DX: I35.0 Nonrheumatic aortic (valve) stenosis (principal); E87.2 Acidosis; I44.2 Atrioventricular block, complete; I95.81 Postprocedural hypotension; E86.1 Hypovolemia; E03.9 Hypothyroidism, unspecified; I10 Essential (primary) hypertension; D72.829 Elevated white blood cell count, unspecified; I71.2 Thoracic aortic aneurysm, without rupture; E11.36 Type 2 diabetes mellitus with diabetic cataract; E78.5 Hyperlipidemia, unspecified; Z98.41 Cataract extraction status, right eye; Z98.42 Cataract extraction status, left eye; Z87.891 Personal history of nicotine dependence; Z86.79 Personal history of other diseases of the circulatory system; Q86.0 Fetal alcohol syndrome (dysmorphic)
CPT/HCPCS: 32555; 33208; 36415; 36600; J3490; S0017; 71045; 71046; 80048; 80053; 81001; 81003; 82040; 82330; 82800; 82803; 82810; 82947; 82962; 83036; 83735; 84132; 84295; 85014; 85018; 85025; 85049; 85347; 85610; 85730; 86850; 86900; 86923; 87081; 88304; 88305; 88311; 93005; 93312; 93321; 93325; 93880; 94002; 94003; 99156; 99157; C1768; C1779; C1785; C1892; G0378; J0690; J0697; J1644; J1815; J1940; J2250; J2405; J2704; J2720; J3010; J3370; J3475; J3480; J7189; P9045; P9047; C1751; C1760; J0171; J2270; J2370; J7030; J7050; J7120; P9012; P9016; P9017; P9035

== ENCOUNTER → 2018-12-19 | Outpatient (CLI) | payer MEDICAID ==
[~2018-12-19] MED LIST changes: +OMNIPAQUE 350 MG/ML, 100ML BOTTLE ONE
== END | disposition home or self-care (01) ==
LOC: RAD 14:05
PROVIDERS: ATTEND Internal Medicine Cardiovascular Disease
DX: I71.2 Thoracic aortic aneurysm, without rupture (principal); I35.1 Nonrheumatic aortic (valve) insufficiency
CPT/HCPCS: 71275; Q9967

== ENCOUNTER 2019-02-24 15:20 | Outpatient (CLI) | payer MEDICAID ==
[~2019-02-24 15:20] MED LIST changes: +ASPI-496 PO; +CLOP75TA PO; +FURO-92 PO; +HYDR-3237 PO; -OMNIPAQUE 350 MG/ML, 100ML BOTTLE ONE; +POTA20TA6 PO
== END 2019-02-24 23:59 | disposition home or self-care (01) ==
LOC: CFH 15:20
PROVIDERS: ATTEND Internal Medicine Cardiovascular Disease
DX: I34.0 Nonrheumatic mitral (valve) insufficiency (principal); I10 Essential (primary) hypertension; E78.5 Hyperlipidemia, unspecified; E11.9 Type 2 diabetes mellitus without complications; Z95.2 Presence of prosthetic heart valve
CPT/HCPCS: 93306

== ENCOUNTER 2019-02-26 09:43 | Outpatient (CLI) | payer MEDICAID | END 2019-02-26 23:59 | disposition home or self-care (01) | LOC: RAD 09:43 | PROVIDERS: ATTEND Internal Medicine | DX: R13.10 Dysphagia, unspecified (principal); R05 Cough | CPT/HCPCS: 74230 ==

== ENCOUNTER 2019-03-06 14:22 | Outpatient (CLI) | payer MEDICAID ==
[2019-03-06] MEDS ORDERED: LIDOCAINE-MPF 1%, 5ML ONE (15:17)
== END 2019-03-06 23:59 | disposition home or self-care (01) ==
LOC: RAD 14:22
PROVIDERS: ATTEND Thoracic Surgery (Cardiothoracic Vascular Surgery)
DX: R06.89 Other abnormalities of breathing (principal)
CPT/HCPCS: 32555